=== PATIENT | female | born 1955 | race Caucasian/White ===

== ENCOUNTER 2017-03-19 15:58 | Inpatient (IN) | payer MEDICARE, MEDICAID ==
[2017-03-19] MEDS ORDERED: Benzocaine 20% Spray 60 ML CAN ONE (16:59)
[2017-03-19] MEDS ORDERED: Lidocaine 2% Jelly 5 ML TUBE ONE (17:06)
--- NOTE | 2017-03-19 17:46 | RAD ---
EXAM: ONE VIEW ABDOMEN 03/19/17 HISTORY: NG tube placement. FINDINGS: Nasogastric tube is in the left upper quadrant. Air filled loops of small bowel are noted. There is still some air and fecal material in the visualized colon. Partial or early obstructive small bowel process is favored. IMPRESSION: 1. Nasogastric tube as above. 2. Early or partial small bowel obstruction. POS: [facility]
[2017-03-19] MEDS ORDERED: Morphine PF 1 MG/ML SYR IV PRN (19:51)
[2017-03-19] MEDS ORDERED: Ondansetron HCl/PF 4 MG/2 ML Vial IVP PRN (19:52)
[2017-03-19] MEDS: Sodium Chloride 0.9% 1,000 ML IV SCH (20:22)
[2017-03-19] MEDS: Pantoprazole 40 MG VIAL IVP SCH (20:29)
[2017-03-19] MEDS ORDERED: Morphine 4 MG/ML VIAL IV PRN (20:42)
[2017-03-19] MEDS ORDERED: FLU VACC QS2017-18 36 mo. & older 0.5 ML SYRINGE IM ONE (21:00)
[2017-03-19] MEDS ORDERED: Dextrose 50% Abboject 50 ML SYRINGE SLOW IVP PRN (22:05)
[2017-03-19] MEDS ORDERED: Insulin Regular 300 UNITS/3 ML VIAL SC PRN (22:05)
[2017-03-19] MEDS ORDERED: Nitroglycerin 0.4 MG TAB (25 Tab Bottle) PO PRN (22:05)
[2017-03-19] MEDS ORDERED: Acetaminophen 650 MG Suppository PR PRN (22:05)
[2017-03-19] MEDS ORDERED: Dextrose 5% in Water 1,000 ML IV PRN (22:05)
[2017-03-19] MEDS ORDERED: Eucerin (Mineral Oil/Petrolatum,White) 30 gm Jar TOP PRN (22:10)
[2017-03-19] MEDS ORDERED: Labetalol HCl 100 MG/20 ML VIAL SLOW IVP PRN (22:12)
--- NOTE | 2017-03-19 22:14 | PDOC.EVN ---
Event Note - Event Note Event Note: Consult dictated. Full code. DPOA - . Will request records from PCP.
[2017-03-19] MEDS: Morphine 4 MG/ML VIAL IV PRN (22:56)
--- NOTE | 2017-03-19 23:36 | CON ---
DATE OF ADMISSION: 03/19/2017 DATE OF CONSULTATION: 03/19/2017 ATTENDING PHYSICIAN: Dr. Cohen. PRIMARY CARE PHYSICIAN: The patient follows a physician at [facility]. REASON FOR CONSULTATION: Medical management. HISTORY OF PRESENT ILLNESS: The patient is a 61-year-old female with coronary artery disease, statu s post CABG; diabetes mellitus, type 2; hypertension; presented to the hospital at [facility] with ab dominal discomfort. She underwent a CT scan of the abdomen that was consistent with small-bowel obs truction. She is currently admitted under General Surgery service. Hospitalist team was consulted for medical management. The patient denies any chest pain, shortness of breath, palpitations, doubl e vision, blurring of vision, facial asymmetry or recent immobilization. She currently lives at [facility] with her . Ambulates with the help of a cane. She had a coronary artery bypass grafting 2 years ago. She follows with her shrimp packer in [place]. PAST MEDICAL HISTORY: Per patient report; 1. Coronary artery disease, status post CABG 2 years ago. 2. Diabetes mellitus, type 2. 3. Hypertension. 4. Chronic vertigo. The patient ambulates with the help of a cane for this reason. 5. History of breast cancer, status post right mastectomy. 6. History of subarachnoid hemorrhage requiring shunting. 7. Hyperlipidemia. 8. Panic attacks. 9. Mild intermittent asthma. PAST SURGICAL HISTORY: 1. Appendectomy. 2. Coronary artery bypass grafting. 3. Hysterectomy. 4. Right mastectomy. 5. Shunting for subarachnoid hemorrhage. 6. Hip and shoulder surgery. ALLERGIES: The patient is allergic to multiple medications including AMPICILLIN, CIPROFLOXACIN, CLA RITHROMYCIN, and PENICILLIN G. CURRENT HOME MEDICATIONS: According to the list provided by the patient, iron 27 mg daily, aspirin 81 mg daily, Plavix 75 mg daily, buspirone 10 mg twice a day, lisinopril 30 mg daily, nortriptyline 75 mg daily, Lipitor 80 mg daily, metoprolol tartrate 25 mg daily, niacin 1000 mg daily, metformin 1 000 mg b.i.d., meclizine as needed, citalopram 20 mg daily, ProAir as needed, Zofran as needed, tram adol as needed, Victoza 18 mg daily, Levemir 20 units q.p.m. She also takes other over the counter medications. SOCIAL HISTORY: The patient is a former smoker. Denies current use of smoking, alcohol or drug use . FAMILY HISTORY: Positive for heart disease, hypertension, and diabetes. REVIEW OF SYSTEMS: The following complete review of systems was negative, unless otherwise mentione d in the HPI or below: Constitutional: Weight loss or gain, ability to conduct usual activities. Skin: Rash, itching. Eyes: Double vision, pain. ENT/Mouth: Nose bleeding, neck stiffness, pain, tenderness. Cardiovascular: Palpitations, dyspnea on exertion, orthopnea. Respiratory: Shortness of breath, wheezing, cough, hemoptysis, fever or night sweats. Gastrointestinal: Poor appetite, abdominal pain, heartburn, nausea, vomiting, constipation, or diar ramon. Genitourinary: Urgency, frequency, dysuria, nocturia. Musculoskeletal: Pain, swelling. Neurologic/Psychiatric: Anxiety, depression. Allergy/Immunologic: Skin rash, bleeding tendency. In addition, the patient is hard of hearing. Please refer to Dr. Cohen's history and physical for d etails on her ER presentation. PHYSICAL EXAMINATION: VITAL SIGNS: In the emergency room, temperature 36.8, pulse rate of 94, blood pressure 103/85 with O2 saturation 98% on room air. GENERAL: A 61-year-old female, appears comfortable. Pain controlled with morphine per General Surg estefanía. HEENT: Head atraumatic, normocephalic. Sclerae are anicteric. Moist mucous membranes. No oral le alexei. NECK: Supple, no JVD, no carotid bruit. LUNGS: Clear to auscultation bilaterally. No wheezing or rales. HEART: S1, S2 present. Regular rate and rhythm, 2/6 systolic murmur over the mitral area. Healed midline scar from previous CABG. ABDOMEN: Soft, nontender, bowel sounds present. EXTREMITIES: No edema or calf tenderness. NEUROLOGIC: Grossly nonfocal, moves all four extremities. PSYCHIATRY: Alert, awake, oriented x3. SKIN: Warm and dry. LYMPH NODES: No palpable lymph nodes in the neck. PERIPHERAL VASCULAR: Radial pulses palpable bilaterally. MUSCULOSKELETAL: No joint swelling or tenderness. LABORATORY FINDINGS: Please note the labs below were done at [facility]. Chemistries showed sodium 136, potassium 4.5, chloride 104, bicarbonate 21, BUN was 18, creatinine 1.3, GFR was 41, total bili johnson 0.4, alkaline phosphatase 180, AST and ALT in normal range. CBC showed WBC of 13.8 with hemog lobin 9.2, hematocrit 29.3, platelet of 360. Urinalysis was negative for wbc, bacteria. EKG has been ordered. CT scan showed abnormally dilated small bowel with air fluid level with evide nce for small-bowel obstruction. There were tiny nonobstructing left renal calculus versus renal va scular calcification. There was also small left adrenal myelolipoma. IMPRESSION: 1. Small-bowel obstruction management per General Surgery. 2. Coronary artery disease, status post coronary artery bypass graft. The patient is n.p.o. and radford s an NG tube. Aspirin and Plavix is currently on hold. She also takes metoprolol 25 mg daily, whic h is on hold as well. Blood pressure is on the low normal at 111/74. We will consider initiating l ow dose beta blockers once a blood pressure improves. The patient denies any chest pain, shortness of breath, palpitations. EKG has been ordered and pending at this time. 3. Diabetes mellitus, type 2. We will hold Victoza and Levemir at this time. We will start her on sliding scale with Accu-Cheks q.4 hourly. We will continue current IV fluids. 4. Mild leukocytosis, probably secondary to #1. Temperature is 98.2 currently. 5. History of breast cancer, status post right mastectomy. 6. Chronic kidney disease, stage 3. We will monitor. 7. Chronic vertigo. Meclizine will be held. The patient ambulates with the help of a cane. Physi huyen therapy will be consulted. 8. History of subarachnoid hemorrhage requiring shunting. The patient denies any headache. There are no meningeal signs. 9. Hyperlipidemia. We will hold niacin. 10. History of panic attacks. The patient appears comfortable at this time. We will hold her home medications including citalopram and buspirone. 11. Mild intermittent asthma. We will add p.r.n. nebulizer treatments. 12. PENICILLIN, CIPROFLOXACIN and CLARITHROMYCIN allergy. Thank you Dr. Cohen for this consultation. We will follow with you.
[2017-03-20] MEDS: Sodium Chloride 0.9% 1,000 ML IV SCH (02:03)
[2017-03-20 05:38] LABS: #Eosinphils 0.3 thou/uL (0.0-0.7); #Lymphocytes 2.6 thou/uL (1.20-3.40); #Monocytes 1.2 thou/uL (0.11-0.59); #Neutrophils 6.8 thou/uL (1.40-6.50); %Basophils 0.2 % (0.0-1.0); %Eosinophils 2.9 % (0.0-10.0); %Lymphocytes 23.6 % (21.0-51.0); Hematocrit 28.5 % (36.0-47.0); Mean Platelet Volume 6.9 fL (7.4-10.4); Red Blood Cell (RBC) Count 3.58 mill/uL (4.20-5.40)
[2017-03-20 06:00] LABS: Anion Gap 14 mmol/L (10-20); BUN (Urea Nitrogen) 11 mg/dL (9.8-20.1); BUN/Creatinine Ratio 11.96; Calc. Creatinine Clearance 106 mL/min (70-130); Calcium 8.6 mg/dL (7.8-10.44); Carbon Dioxide 21 mmol/L (22-29); Chloride 109 mmol/L (98-107); Estimated GFR-MDRD 62; Magnesium 1.4 mg/dL (1.6-2.6); Phosphorus 3.2 mg/dL (2.3-4.7)
[2017-03-20] MEDS ORDERED: Magnesium Sulfate 4 GM in Sodium Chloride 0.9% 250 ML 250 ML IVPB SCH (06:15)
--- NOTE | 2017-03-20 09:28 | RAD ---
ABDOMEN 1 VIEW: HISTORY: A 61-year-old female with followup small bowel obstruction. COMPARISON: 03/19/17. FINDINGS: NG tube is somewhat coiled within the stomach. There appears to be a small caliber catheter overlyi ng the upper central abdomen and overlying the pelvis. There are some persistently dilated loops of small bowel with less distention and dilatation than on the prior study. IMPRESSION: Persistent small bowel dilatation showing some improvement. Continue short-term followup. POS: [facility]
--- NOTE | 2017-03-20 09:49 | PDOC.PN ---
- Subjective Encounter Start Date: 03/20/17 Encounter Start Time: 09:48 Subjective: feels better.abdominal pain improved. -: no gas or BM yet -: no nausea/vomiting - Objective Resuscitation Status: Resuscitation Status FULL:Full Resuscitation MAR Reviewed: Yes Vital Signs & Weight: Vital Signs (12 hours) Temp Pulse Resp BP Pulse Ox 03/20/17 04:20 98.3 F 100 12 132/71 90 L Weight Weight 227 lb 1.218 oz I&O: 03/19/17 03/20/17 03/21/17 06:59 06:59 06:59 Intake Total 1250 Output Total 100 Balance 1150 Result Diagrams: 03/20/17 05:18 03/20/17 05:18 Additional Labs: Accuchecks 03/20/17 03/20/17 03/20/17 08:25 05:17 00:13 POC Glucose 119 H 123 H 147 H Radiology Reviewed by me: Yes (KUB-some improvement in SBO) Phys Exam - Physical Examination Constitutional: NAD HEENT: PERRLA, moist MMs, sclera anicteric, oral pharynx no lesions NGT in place Neck: no nodes, no JVD, supple, full ROM Respiratory: no wheezing, no rales, no rhonchi, clear to auscultation bilateral Cardiovascular: RRR, no significant murmur, no rub, gallop Gastrointestinal: soft, non-tender, no distention, positive bowel sounds Musculoskeletal: no edema, pulses present Neurological: non-focal, normal sensation, moves all 4 limbs Psychiatric: normal affect, A&O x 3 Skin: no rash Dx/Plan (1) SBO (small bowel obstruction) Code(s): K56.609 - UNSP INTESTNL OBST, UNSP TO PARTIAL VERSUS COMPLETE OBST Status: Acute (2) DM2 (diabetes mellitus, type 2) Status: Chronic Qualifiers: Diabetes mellitus complication status: with hyperglycemia (3) CAD (coronary artery disease) Code(s): I25.10 - ATHSCL HEART DISEASE OF [place] CORONARY ARTERY W/O ANG PCTRS Status: Chronic Comment: s/p CBAG in past (4) HTN (hypertension) Code(s): I10 - ESSENTIAL (PRIMARY) HYPERTENSION Status: Chronic Qualifiers: Hypertension type: essential hypertension Qualified Code(s): I10 - Essential (primary) hypertension (5) H/O malignant neoplasm of breast Code(s): Z85.3 - PERSONAL HISTORY OF MALIGNANT NEOPLASM OF BREAST Status: Chronic Comment: s/p Right mastectomy (6) H/O subarachnoid hemorrhage Code(s): Z86.79 - PERSONAL HISTORY OF OTHER DISEASES OF THE CIRCULATORY SYSTEM Status: Chronic Comment: s/p shunt placement (7) Ventriculo-peritoneal shunt status Status: Chronic (8) Microcytic hypochromic anemia Code(s): D50.9 - IRON DEFICIENCY ANEMIA, UNSPECIFIED Status: Chronic (9) Hypomagnesemia Code(s): E83.42 - HYPOMAGNESEMIA Status: Acute - Plan plan discussed w/ family, out of bed/ambulate, DVT proph w/SCDs restart ASA,plavix and BB once allowed oral intake by GS team -: cont ISS w frequent accucjecks.avoid hypoglycemia. -: add dextrose to IVF if remians NPO today. -: hemodynamically stable.replace and recheck lytes -: will follow.check iron indices * . Review of Systems - Review of Systems Constitutional: negative: Fever, Chills, Sweats, Weakness, Malaise, Other ENT: negative: Ear Pain, Ear Discharge, Nose Pain, Nose Discharge, Nose Congestion, Mouth Pain, Mouth Swelling, Throat Pain, Throat Swelling, Other Respiratory: negative: Cough, Dry, Shortness of Breath, Hemoptysis, SOB with Excertion, Pleuritic Pain, Sputum, Wheezing Cardiovascular: negative: Chest Pain, Palpitations, Orthopnea, Paroxysmal Noc. Dyspnea, Edema, Light Headedness, Other Gastrointestinal: negative: Nausea, Vomiting, Abdominal Pain, Diarrhea, Constipation, Melena, Hematochezia, Other Genitourinary: negative: Dysuria, Frequency, Incontinence, Hematuria, Retention , Other Musculoskeletal: negative: Neck Pain, Shoulder Pain, Arm Pain, Back Pain, Hand Pain, Leg Pain, Foot Pain, Other Neurological: negative: Weakness, Numbness, Incoordination, Change in Speech, Confusion, Seizures, Other - Medications/Allergies Allergies/Adverse Reactions: Allergies Allergy/AdvReac Type Severity Reaction Status Date / Time ampicillin Allergy Mild Verified 03/19/17 20:24 ciprofloxacin [From Cipro] Allergy Mild Verified 03/19/17 20:24 clarithromycin [From Biaxin] Allergy Mild Verified 03/19/17 20:24 penicillin G Allergy Verified 03/19/17 20:24 Medications: Current Medications Acetaminophen (Tylenol) 650 mg NM Q4H PRN PRN Reason: Headache/Fever or Pain Albuterol/Ipratropium (Duoneb) 3 ml NEB Q4H PRN PRN Reason: SOB &/or Wheezing Dextrose/Water (Dextrose 50%) 25 gm SLOW IVP PRN PRN PRN Reason: Hypoglycemia Glucagon (Glucagon) 1 mg IM PRN PRN PRN Reason: Hypoglycemia Dextrose/Water (D5w) 1,000 mls @ 0 mls/hr IV .Q0M PRN; As Directed PRN Reason: Hypoglycemia Magnesium Sulfate 4 gm/ Sodium (Chloride) 258 mls @ 86 mls/hr IVPB NOW RAMON Stop: 03/20/17 10:00 Last Admin: 03/20/17 07:31 Dose: 258 mls Insulin Human Regular (Humulin R) 0 units SC .MILD SLIDING SCALE PRN PRN Reason: Mild Correctional Scale Labetalol HCl (Normodyne) 10 mg SLOW IVP Q4H PRN PRN Reason: Systolic BP > 180 Mineral Oil/White Petrolatum (Eucerin Cream) 0 gm TOP BIDPRN PRN PRN Reason: Dry Skin Morphine Sulfate (Morphine Sulfate) 4 mg IV Q2H PRN PRN Reason: Severe Pain (7-10) Last Admin: 03/19/17 22:56 Dose: 4 mg Morphine Sulfate (Morphine Sulfate) 2 mg IV Q2H PRN PRN Reason: Moderate Pain (4-6) Nitroglycerin (Nitrostat) 0.4 mg PO Q5MIN PRN PRN Reason: Chest Pain Ondansetron HCl (Zofran) 4 mg IVP Q4H PRN PRN Reason: Nausea/Vomiting Pantoprazole Sodium (Protonix) 40 mg IVP 2100 RAMON Last Admin: 03/19/17 20:29 Dose: 40 mg Sodium Chloride (Flush - Normal Saline) 10 ml IVF PRN PRN PRN Reason: Saline Flush
[2017-03-20 10:24] LABS: Iron 22 ug/dL (50-170)
--- NOTE | 2017-03-20 11:01 | RAD ---
ABDOMEN 1 VIEW: HISTORY: A 61-year-old female with a history of small bowel obstruction. COMPARISON: 03/20/17, 4:37 a.m. FINDINGS: There is persistent small bowel dilatation. NG tube is in place. There appears to be a right-sided ventriculoperitoneal shunt tube in place, stable. IMPRESSION: Stable small bowel dilatation. Evidence for overall stable small bowel obstruction. These dilated small bowel loops may be slightly more distended than on the prior study. POS: [facility]
[2017-03-20] MEDS: Dextrose 5 %-0.45 % NaCl 1,000 ML IV SCH (11:56)
[2017-03-20] MEDS: busPIRone HCl 10 MG TAB PO SCH ×3 (14:03→20:20)
--- NOTE | 2017-03-20 14:20 | HP ---
CHIEF COMPLAINT: Central abdominal pain. HISTORY OF PRESENT ILLNESS: This is a 61-year-old female with a 2 week history of nausea, vomiting, diarrhea, and central abdominal pain, no previous episodes, never had a colonoscopy. She did pass flatus yesterday and had a bowel movement yesterday. She says she feels a lot better and she is hun gry today. PAST MEDICAL HISTORY: Diabetes, obesity, breast cancer, CVA. PAST SURGICAL HISTORY: Coronary artery bypass graft, right mastectomy, craniotomy, left arm fractur e repair, left leg femur fracture repair. She has had a P[place] shunt. MEDICATIONS: Include multivitamins, fish oil, calcium, magnesium, Colace, iron, aspirin, niacin, me toprolol, nortriptyline, lisinopril, buspirone, Plavix, metformin, meclizine, citalopram, , Zof ran, tramadol, Victoza, Levemir, Fany. ALLERGIES: She is allergic to SULFA, IMMUNIZATIONS, PENICILLIN, BIAXIN and CIPRO. SOCIAL HISTORY: She is , unemployed. No tobacco or alcohol. FAMILY HISTORY: Hypertension, diabetes, and cancer. PHYSICAL EXAMINATION: VITAL SIGNS: Temperature 98.4, pulse 94, blood pressure 134/63. GENERAL: She is an obese female, in no apparent distress. HEENT: She has small caliber NG tube in left naris. LUNGS: Clear. HEART: Regular rate and rhythm. ABDOMEN: Obese, soft, nontender. She has well healed surgical scars in the upper abdomen. LABORATORY DATA AND X-RAY FINDINGS: Her white count is 11, H\T\H is 9 and 28, platelet count of 362 . Electrolytes, elevated glucose at 120. KUB shows dilated small bowel, but it is better than yest erday. ASSESSMENT: Partial small-bowel obstruction. PLAN: Continue IV hydration, NG suction.
[2017-03-20] MEDS ORDERED: Lorazepam 2 MG/ML VIAL SLOW IVP SCH (14:45)
[2017-03-20] MEDS ORDERED: busPIRone HCl 10 MG TAB PO SCH (15:45)
[2017-03-20] MEDS: Pantoprazole 40 MG VIAL IVP SCH (20:20)
[2017-03-21] MEDS: Dextrose 5 %-0.45 % NaCl 1,000 ML IV SCH ×3 (00:32→17:39)
[2017-03-21 05:57] LABS: Calcium 8.7 mg/dL (7.8-10.44); Chloride 108 mmol/L (98-107); Magnesium 1.6 mg/dL (1.6-2.6)
[2017-03-21 05:59] LABS: Band 3 % (5-11); Elliptocytes SLIGHT = 2-5 cells (100X) (0-1/hpf); Hematocrit 28.9 % (36.0-47.0); Mean Platelet Volume 7.1 fL (7.4-10.4); Metamyelocyte 1 % (0-0); Myelocyte 5 % (0-0); Neutrophil 48 % (42-75); Red Blood Cell (RBC) Count 3.63 mill/uL (4.20-5.40); White Blood Cell (WBC) Count 8.7 thou/uL (4.8-10.8)
[2017-03-21 06:05] LABS: BUN (Urea Nitrogen) 7 mg/dL (9.8-20.1); BUN/Creatinine Ratio 7.95; Calc. Creatinine Clearance 111 mL/min (70-130); Carbon Dioxide 20 mmol/L (22-29); Estimated GFR-MDRD 66
[2017-03-21 06:46] LABS: Anion Gap 15 mmol/L (10-20)
[2017-03-21] MEDS: busPIRone HCl 10 MG TAB PO SCH ×2 (11:46→20:04)
[2017-03-21] MEDS: Citalopram 20 MG TAB PO SCH (11:46)
[2017-03-21] MEDS: Morphine 4 MG/ML VIAL IV PRN (11:47)
[2017-03-21 12:03] VITALS: BMI 37.8
--- NOTE | 2017-03-21 15:42 | RAD ---
SMALL BOWEL SERIES: Date: 03/21/17 HISTORY: Small bowel obstruction. FINDINGS: The budget counselor film demonstrates right-sided ventriculoperitoneal shunt tubing. Air is noted in loops of small and large bowel. Some of the small bowel loops appear dilated. Postop changes of metallic hard yang are present in the left proximal femur. There is unobstructed flow of contrast through the stomach and into the loops of small bowel and rig ht colon by 2 hours of contrast administration. The small bowel loops appear dilated. IMPRESSION: No evidence of high grade small bowel obstruction. POS: [facility]
[2017-03-21] MEDS ORDERED: MD-Gastroview 120 ML BOT ONE (15:50)
--- NOTE | 2017-03-21 19:13 | PDOC.PN ---
- Subjective Encounter Start Date: 03/21/17 Encounter Start Time: 15:00 Patient seen and examined. No N/V. 6 BMs after small bowel f/t. No overnight events - Objective Resuscitation Status: Resuscitation Status FULL:Full Resuscitation MAR Reviewed: Yes Vital Signs & Weight: Vital Signs (12 hours) Temp Pulse Resp BP Pulse Ox 03/21/17 16:00 98.3 F 99 16 143/88 H 100 03/21/17 11:53 98.0 F 98 20 134/83 98 03/21/17 11:45 98.3 F 99 16 98 03/21/17 07:21 98.2 F 86 14 142/81 H 95 Weight Admit Weight 227 lb Weight 227 lb I&O: 03/20/17 03/21/17 03/22/17 06:59 06:59 06:59 Intake Total 1250 2450 930 Output Total 100 400 Balance 1150 2450 530 Result Diagrams: 03/21/17 05:13 03/21/17 05:13 Additional Labs: Accuchecks 03/21/17 03/21/17 03/21/17 17:53 13:51 05:14 POC Glucose 197 H 161 H 147 H 03/21/17 03/20/17 00:13 19:54 POC Glucose 135 H 124 H Radiology Reviewed by me: Yes (Small bowel f/t - No SBO) Phys Exam - Physical Examination Constitutional: NAD Respiratory: no wheezing, no rhonchi Cardiovascular: RRR, no rub Gastrointestinal: soft, non-tender, positive bowel sounds Musculoskeletal: no edema Neurological: moves all 4 limbs Dx/Plan - Plan DVT proph w/SCDs IMPRESSION: 1. Small-bowel obstruction 2. Coronary artery disease, status post coronary artery bypass graft. 3. Diabetes mellitus, type 2. on sliding scale 4. Mild intermittent asthma 5. History of breast cancer, status post right mastectomy. 6. Chronic kidney disease, stage 3. 7. Chronic vertigo. 8. History of subarachnoid hemorrhage requiring shunting. 9. Hyperlipidemia. 10. History of panic attacks. PLAN: * Start clear liqd if ok with Gen surg * Resume home meds * Cont to monitor * Will follow. Review of Systems - Review of Systems Respiratory: negative: Cough, Dry, Shortness of Breath, Hemoptysis, SOB with Excertion, Pleuritic Pain, Sputum, Wheezing Cardiovascular: negative: Chest Pain, Palpitations, Orthopnea, Paroxysmal Noc. Dyspnea, Edema, Light Headedness, Other - Medications/Allergies Allergies/Adverse Reactions: Allergies Allergy/AdvReac Type Severity Reaction Status Date / Time ampicillin Allergy Mild Verified 03/19/17 20:24 ciprofloxacin [From Cipro] Allergy Mild Verified 03/19/17 20:24 clarithromycin [From Biaxin] Allergy Mild Verified 03/19/17 20:24 penicillin G Allergy Verified 03/19/17 20:24 Medications: Current Medications Acetaminophen (Tylenol) 650 mg NE Q4H PRN PRN Reason: Headache/Fever or Pain Albuterol/Ipratropium (Duoneb) 3 ml NEB Q4H PRN PRN Reason: SOB &/or Wheezing Buspirone HCl (Buspar) 10 mg PO BID [facility] Last Admin: 03/21/17 11:46 Dose: 10 mg Citalopram Hydrobromide (Celexa) 20 mg PO DAILY [facility] Last Admin: 03/21/17 11:46 Dose: 20 mg Dextrose/Water (Dextrose 50%) 25 gm SLOW IVP PRN PRN PRN Reason: Hypoglycemia Glucagon (Glucagon) 1 mg IM PRN PRN PRN Reason: Hypoglycemia Dextrose/Water (D5w) 1,000 mls @ 0 mls/hr IV .Q0M PRN; As Directed PRN Reason: Hypoglycemia Dextrose/Sodium Chloride (D5 1/2 Ns) 1,000 mls @ 75 mls/hr IV .[id number] [facility] Last Admin: 03/21/17 17:39 Dose: 1,000 mls Insulin Human Regular (Humulin R) 0 units SC .MILD SLIDING SCALE PRN PRN Reason: Mild Correctional Scale Labetalol HCl (Normodyne) 10 mg SLOW IVP Q4H PRN PRN Reason: Systolic BP > 180 Mineral Oil/White Petrolatum (Eucerin Cream) 0 gm TOP BIDPRN PRN PRN Reason: Dry Skin Morphine Sulfate (Morphine Sulfate) 4 mg IV Q2H PRN PRN Reason: Severe Pain (7-10) Last Admin: 03/21/17 11:47 Dose: 4 mg Morphine Sulfate (Morphine Sulfate) 2 mg IV Q2H PRN PRN Reason: Moderate Pain (4-6) Last Admin: 03/20/17 22:35 Dose: 2 mg Nitroglycerin (Nitrostat) 0.4 mg PO Q5MIN PRN PRN Reason: Chest Pain Ondansetron HCl (Zofran) 4 mg IVP Q4H PRN PRN Reason: Nausea/Vomiting Last Admin: 03/21/17 11:47 Dose: 4 mg Pantoprazole Sodium (Protonix) 40 mg IVP 2100 RAMON Last Admin: 03/20/17 20:20 Dose: 40 mg Sodium Chloride (Flush - Normal Saline) 10 ml IVF PRN PRN PRN Reason: Saline Flush Last Admin: 03/21/17 11:59 Dose: 10 ml
[2017-03-21] MEDS: Sodium Chloride 0.45% 1,000 ML IV SCH (19:57)
[2017-03-21] MEDS: Metoprolol Tartrate 25 MG TAB PO SCH (20:03)
[2017-03-21] MEDS: Lisinopril 5 MG TAB PO SCH (20:03)
[2017-03-21] MEDS: Pantoprazole 40 MG VIAL IVP SCH (20:03)
[2017-03-21] MEDS: Meclizine HCl 25 MG TAB PO SCH (20:04)
[2017-03-22 06:05] LABS: Anion Gap 14 mmol/L (10-20); BUN (Urea Nitrogen) 6 mg/dL (9.8-20.1); BUN/Creatinine Ratio 6.12; Calc. Creatinine Clearance 99 mL/min (70-130); Calcium 8.7 mg/dL (7.8-10.44); Carbon Dioxide 21 mmol/L (22-29); Chloride 109 mmol/L (98-107); Estimated GFR-MDRD 58; Magnesium 1.4 mg/dL (1.6-2.6); Phosphorus 3.8 mg/dL (2.3-4.7)
[2017-03-22] MEDS ORDERED: Magnesium Sulfate 4 GM, Admixture Fee 1 EACH in Sodium Chloride 0.9% 250 ML 250 ML IVPB SCH (06:45)
[2017-03-22] MEDS: Lisinopril 5 MG TAB PO SCH (08:30)
[2017-03-22] MEDS: Citalopram 20 MG TAB PO SCH (08:30)
[2017-03-22] MEDS: busPIRone HCl 10 MG TAB PO SCH (08:30)
[2017-03-22] MEDS: Potassium Chloride 10 MEQ TAB PO SCH ×2 (08:30→12:22)
[2017-03-22] MEDS: Sodium Chloride 0.45% 1,000 ML IV SCH (08:30)
[2017-03-22] MEDS: Metoprolol Tartrate 25 MG TAB PO SCH (08:31)
[2017-03-22] MEDS: Meclizine HCl 25 MG TAB PO SCH (08:31)
[2017-03-22] MEDS ORDERED: Nortriptyline HCl 25 MG CAP PO SCH (09:00)
[2017-03-22] MEDS ORDERED: Aspirin 81 mg Enteric Coated Tablet PO SCH (09:00)
--- NOTE | 2017-03-22 10:46 | DPRG ---
TRANSFER OF CARE NOTE PRIMARY CARE PHYSICIAN: [facility] call admission. DATE OF ADMISSION: 03/19/2017 DATE OF DISCHARGE: 03/22/2017 DISCHARGE DISPOSITION: Home. PRIMARY DISCHARGE DIAGNOSES: 1. Small-bowel obstruction, resolved. 2. Hypomagnesemia, replaced. 3. Hypokalemia. SECONDARY DISCHARGE DIAGNOSES: Coronary artery disease with history of coronary artery bypass graft ; diabetes, type 2; history of breast cancer with right mastectomy; chronic kidney disease, stage 3; chronic vertigo; anxiety and depression; hypertension; dyslipidemia; mild intermittent asthma; hist ory of subarachnoid hemorrhage required shunting. PRIMARY PROCEDURES/OPERATIONS: None. RADIOLOGIC INVESTIGATION: The patient was observed with serial abdomen x-ray as well as small bowel x-ray was done, which showed no evidence of obstruction. SIGNIFICANT LABORATORY DATA: WBC 8.7, hemoglobin 9.0, MCV 79.6, platelets 346. Sodium 141, potassi um 3.4, BUN 6, creatinine 0.98, calcium 8.7, magnesium 1.4, albumin 3.3. DISCHARGE MEDICATIONS: Patient will resume all her previous home medications. Aspirin 81 mg p.o. d aily, Celexa 20 mg p.o. daily, Plavix 75 mg p.o. daily, lisinopril 30 mg p.o. daily, Antivert 25 mg t.i.d. p.r.n., metoprolol 25 mg p.o. daily, nortriptyline 75 mg p.o. daily, buspirone 10 mg b.i.d., metformin 1000 mg p.o. b.i.d. CONTRAINDICATIONS: None. CODE STATUS: FULL CODE. INPATIENT CONSULTANTS: Dr. Cohen was primary. Sound team was consulted for medical management. TEST RESULTS PENDING ON DISCHARGE: None. ALLERGIES: AMPICILLIN, CIPROFLOXACIN, CLARITHROMYCIN, PENICILLIN. DISCHARGE PLAN: Post hospital, patient will follow up with primary care physician in 1 or 2 weeks. HOSPITAL COURSE: A 61-year-old female who was admitted under Dr. Cohen. Please see his H\T\P for f urther details. The patient was admitted for small-bowel obstruction. She was having central abdom inal pain. She was conservatively treated while in hospital. Initially, she required NG tube with low intermittent suction and patient was hydrated with IV fluid. We kept on hold all her home medic ation. Sound team was consulted for medical comanagement. While in hospital, she remained hemodyna mically stable. On the day of discharge, her low potassium and low magnesium was replaced. Patient has small bowel x-ray that showed resolution of small bowel obstruction. At that time, patient was started on clear-liquid diet and advanced to regular diet. The patient is tolerating very well wit hout any problem. The patient is seen and examined at bedside today. She was eating solid food and she was tolerating very well. She is hard of hearing. She does not have any complaints. PHYSICAL EXAMINATION VITAL SIGNS: Currently temperature 98.1, pulse 85, respiratory rate 16, saturation 95%, blood press ure 165/89. Weight to 227 pounds. GENERAL: Patient is currently alert, awake, in no acute distress. HEAD: Normocephalic, atraumatic. LUNGS: Clear. CARDIAC: S1, S2 regular without any murmur. ABDOMEN: Soft and benign without any tenderness. EXTREMITIES: No edema. NEUROLOGICAL: Nonfocal examination. Overall, this patient is medically stable for discharge. All review of systems reviewed with the ky malik and negative.
[2017-03-22 11:22] VITALS: BP 131/71; TEMP 98.2
--- NOTE | 2017-03-22 12:09 | DIS ---
DISCHARGE DIAGNOSIS: Intestinal obstruction. PROCEDURES DURING ADMISSION: NG suction, IV hydration, small bowel follow through. HOSPITAL COURSE: The patient was admitted, had a very difficult time getting the NG tube in. She d id not tolerate it very well. Eventually it got pulled out. Films suggested a partial small-bowel obstruction. She had a small bowel follow through that was unremarkable. She is now having multipl e bowel movements, tolerating liquids well, no pain. She is discharged home in good condition on he r usual medications. She will follow up with me or with her primary care physician in 2 weeks.
--- NOTE | 2017-03-27 15:01 | EKG ---
Test Reason : Blood Pressure : / mmHG Vent. Rate : 098 BPM Atrial Rate : 098 BPM P-R Int : 190 ms QRS Dur : 168 ms QT Int : 430 ms P-R-T Axes : 067 -31 039 degrees QTc Int : 548 ms Normal sinus rhythm Left axis deviation Right bundle branch block Abnormal ECG No previous ECGs available Confirmed by MARICRUZ LOERA (2) on 03/27/2017 3:00:45 PM Referred By: Confirmed By:MARICRUZ LOERA
--- NOTE | 2017-03-29 15:34 | PQF ---
BENJAMIN Mendez, NYA Valencia JR, MD [id number] [facility] [id number] CLINICAL DOCUMENTATION CLARIFICATION FORM: POST DISCHARGE DATE: 03/29/17 ATTN: DR MELO Please exercise your independent, professional judgment in responding to the clarification form. Clinical indicators are provided on the bottom of this form for your review PLEASE CLARIFY THE CONDITION BEING TREATED FOR THE ASSET RECOVERY SPECIALIST SHUNT. PATIENT IS STATUS POST SUBARACHNOID HEMORRHAGE WHICH REQUIRED ASSET RECOVERY SPECIALIST SHUNT. DIAGNOSIS: CLINICAL INDICATORS - SIGNS / SYMPTOMS / LABS PRESENCE OF ASSET RECOVERY SPECIALIST SHUNT (This form is maintained as a part of the permanent medical record) 2014 [employer] All Rights Reserved Ivon [email or web address] [phone] [email or web address]
== END 2017-03-22 14:36 | disposition home or self-care (01) | DRG 390 ==
LOC: ERS 15:58 → SURG A 16:19
PROVIDERS: ADMIT Surgery; ATTEND Surgery
DX: K56.609 Unspecified intestinal obstruction, unspecified as to partial versus complete obstruction (principal); E11.22 Type 2 diabetes mellitus with diabetic chronic kidney disease; N18.3 Chronic kidney disease, stage 3 (moderate); E66.9 Obesity, unspecified; Z68.37 Body mass index [BMI] 37.0-37.9, adult; Z86.73 Personal history of transient ischemic attack (TIA), and cerebral infarction without residual deficits; Z95.1 Presence of aortocoronary bypass graft; Z85.3 Personal history of malignant neoplasm of breast; Z90.11 Acquired absence of right breast and nipple; Z88.1 Allergy status to other antibiotic agents; Z88.0 Allergy status to penicillin; Z88.2 Allergy status to sulfonamides; Z88.7 Allergy status to serum and vaccine; I25.10 Atherosclerotic heart disease of native coronary artery without angina pectoris; R42 Dizziness and giddiness; E78.5 Hyperlipidemia, unspecified; F41.0 Panic disorder [episodic paroxysmal anxiety]; J45.20 Mild intermittent asthma, uncomplicated; Z79.01 Long term (current) use of anticoagulants; Z79.82 Long term (current) use of aspirin; Z79.4 Long term (current) use of insulin; Z87.891 Personal history of nicotine dependence; I12.9 Hypertensive chronic kidney disease with stage 1 through stage 4 chronic kidney disease, or unspecified chronic kidney disease; E83.42 Hypomagnesemia; E87.6 Hypokalemia; F41.9 Anxiety disorder, unspecified; F32.9 Major depressive disorder, single episode, unspecified; E11.65 Type 2 diabetes mellitus with hyperglycemia; D50.9 Iron deficiency anemia, unspecified; Z98.2 Presence of cerebrospinal fluid drainage device
CPT/HCPCS: 36415; 36416; 74000; 74250; 80069; 83540; 83550; 83605; 83735; 85025; 93005; 93010; 94760; 96360; C9113; G8978-GP-CI; G8979-GP-CI; G8980-GP-CI; J2060; J2270; J2405; J3475; J7050